=== PATIENT | male | born 1975 | race Caucasian/White ===

== ENCOUNTER 2023-05-16 16:12 | Emergency (ER) | payer OTHER, MEDICAID ==
[~2023-05-16] VITALS: Ht 177.8 cm; Wt 86.2 kg
--- NOTE | 2023-05-16 16:12 | NUR ---
BIB AMB. TO BED 4. NO ACUTE DISTRESS. NEURO INTACT. ABLE TO MOVE ALL EXTREMITIES. SPEECH CLEAR. LACERATION TO FOREHEAD WITH DRESSING IN PLACE, NO ACTIVE BLEEING.MD AT BEDSIDE AT PT.'S ARRIVAL
[2023-05-16 16:25] VITALS: BP 143/61; PULSE 84; RESP 16; TEMP 98.5; O2SAT 100
[2023-05-16] MEDS ORDERED: NACL 0.9% 1,000 ML IV ONE (16:25)
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
--- NOTE | 2023-05-16 16:45 | NUR ---
PT IN CT
[2023-05-16] MEDS ORDERED: LIDOCAINE MPF 1% 10 MG/ML VIAL INJ ONE (17:10)
[2023-05-16] MEDS ORDERED: ACET-10509 PO (17:25)
--- NOTE | 2023-05-16 18:10 | NUR ---
Per Jarrod Branch LVN, NaCl 0.9 1L bolus started at 1710 and stopped at 1810. ED director aware.
--- NOTE | 2023-05-16 18:52 | NUR ---
The patient's care was reviewed and supervised by NATALIA CASTELLANOS RN.
== END 2023-05-16 18:31 | disposition home or self-care (01) ==
LOC: MED 16:12
DX: S01.01XA Laceration without foreign body of scalp, initial encounter (principal); S29.9XXA Unspecified injury of thorax, initial encounter; E11.9 Type 2 diabetes mellitus without complications; I10 Essential (primary) hypertension; Z79.899 Other long term (current) drug therapy; V43.52XA Car driver injured in collision with other type car in traffic accident, initial encounter; Y93.89 Activity, other specified; Y92.410 Unspecified street and highway as the place of occurrence of the external cause; Y99.8 Other external cause status
CPT/HCPCS: 12002; 70450; 71045; 82948; 90471; 90715; 93005; 96360; 99285; J2001; J7030

== ENCOUNTER 2023-05-24 13:03 | Emergency (ER) | payer MEDICAID, OTHER ==
[~2023-05-24] VITALS: Ht 177.8 cm; Wt 87.5 kg
[~2023-05-24 13:03] MED LIST: ACET-10509 PO
[2023-05-24 13:32] VITALS: BP 140/85; PULSE 76; RESP 18; TEMP 98.1; O2SAT 98
[2023-05-24] MEDS ORDERED: LIDOCAINE MPF 1% 10 MG/ML VIAL INJ ONE (14:40)
--- NOTE | 2023-05-24 15:10 | NUR ---
PT AMBULATED TO BED 4
[2023-05-24 15:22] VITALS: O2SAT 98
--- NOTE | 2023-05-24 15:22 | NUR ---
47YO MALE PT C/O L WRIST PAIN AND SWELLING X6DAYS. REPORTS ONSET S/P POSSIBLE BUG BITE. PRESENTS WITH REDDENED ABSCESS. NO DRAINAGE NOTED. DENIES N/V/D,FEVER, CHILLS, CHEST PAIN, SOB OR RELIEF AFTER TYLENOL. PT AAOX4, HOB POSITIONED PER COMFORT. CALL LIGHT WITHIN REACH HX: DIABETES NKA
[2023-05-24] MEDS ORDERED: SULF-59 PO (15:37)
[2023-05-24 15:45] VITALS: BP 135/80; PULSE 77; RESP 18; TEMP 98.1; O2SAT 98
--- NOTE | 2023-05-24 15:52 | NUR ---
Patient discharged with v/s stable. Written and verbal after care instructions FOR I-N-D given and explained. Patient alert, oriented and verbalized understanding of instructions. Ambulatory with steady gait. All questions addressed prior to discharge. ID band removed. Patient advised to follow up with PMD. Rx of BACTRIM given. Opportunity to ask questions provided and answered.
--- NOTE | 2023-05-24 17:57 | NUR ---
The patient's care was reviewed and supervised by NATALIA CASTELLANOS RN.
== END 2023-05-24 15:52 | disposition home or self-care (01) ==
LOC: MED 13:03
DX: S09.90XD Unspecified injury of head, subsequent encounter (principal); L02.414 Cutaneous abscess of left upper limb; E11.9 Type 2 diabetes mellitus without complications; I10 Essential (primary) hypertension; Z79.4 Long term (current) use of insulin; Z79.899 Other long term (current) drug therapy; X58.XXXD Exposure to other specified factors, subsequent encounter
CPT/HCPCS: 10060; 99284; J2001

== ENCOUNTER 2023-06-05 10:20 | Emergency (ER) | payer MEDICAID ==
[~2023-06-05] VITALS: Ht 177.8 cm; Wt 89.1 kg
[~2023-06-05 10:20] MED LIST changes: +SULF-59 PO
[2023-06-05 10:37] VITALS: BP 151/98; PULSE 78; RESP 18; TEMP 97.4; O2SAT 98
[2023-06-05 12:30] LABS: BASOPHILS % (AUTO) 0.5 % (0.0-2.0); EOSINOPHILS # (AUTO) 0.1 K/uL (0-0.4); EOSINOPHILS % (AUTO) 1.2 % (0.0-4.0); HEMATOCRIT 45.2 % (36-52); LYMPHOCYTES # (AUTO) 1.9 K/uL (2.0-11.5); LYMPHOCYTES % (AUTO) 34.5 % (20.5-51.1); MEAN CORPUSCULAR HEMOGLOBIN 28 pg (27-31); MEAN CORPUSCULAR HGB CONC 33 g/dL (33-37); MEAN CORPUSCULAR VOLUME 85.1 fL (80-94); MONOCYTES # (AUTO) 0.3 K/uL (0.8-1.0); NEUTROPHILS # (AUTO) 3.3 K/uL (1.8-7.7); NEUTROPHILS % (AUTO) 58.8 % (42.2-75.2); PLATELET COUNT (AUTO) 297 K/uL (140-450); RED BLOOD CELL COUNT(AUTO) 5.31 MIL/uL (4.20-6.10); RED CELL DISTRIBUTION WIDTH 13.6 % (11.6-13.7); WHITE BLOOD COUNT (AUTO) 5.5 K/uL (4.8-10.8)
[2023-06-05 12:44] LABS: ALBUMIN 3.7 g/dL (3.4-5.0); CARBON DIOXIDE 27.2 mmol/L (21-32); CREATININE 0.9 mg/dL (0.6-1.3); POTASSIUM 4.2 mmol/L (3.5-5.1); TOTAL BILIRUBIN 0.4 mg/dL (0.0-1.0); TOTAL PROTEIN, SERUM 7.9 g/dL (6.4-8.2)
[2023-06-05] MEDS: methocarbamoL 500 MG TAB PO STA (13:19)
[2023-06-05] MEDS: KETOROLAC 15 MG/ML VIAL IM ONE (13:20)
[2023-06-05] MEDS: LIDOCAINE 5% 1 EA PATCH TP ONE (13:20)
[2023-06-05] MEDS ORDERED: LIDO1ADH38 TP (13:43)
[2023-06-05] MEDS ORDERED: METH-1681 PO (13:43)
[2023-06-05] MEDS ORDERED: DICL100G5 TP (13:43)
[2023-06-05 13:48] VITALS: BP 132/71; PULSE 74; RESP 17; O2SAT 98
== END 2023-06-05 13:48 | disposition admitted as inpatient to this hospital (09) ==
LOC: MED 10:20
DX: R07.89 Other chest pain (principal); E11.9 Type 2 diabetes mellitus without complications; I10 Essential (primary) hypertension; Z79.899 Other long term (current) drug therapy
CPT/HCPCS: 36415; 71045; 80053; 83880; 84484; 85025; 93005; 96372; 99285; J1885